=== PATIENT | male | born 1945 | race Caucasian/White ===

== ENCOUNTER 2020-08-05 00:31 | Outpatient (CLI) | payer MEDICARE, SELFPAY ==
[2020-08-05 19:01] LABS: SARS-CoV-2 RNA PCR Negative
== END 2020-08-05 00:32 | disposition home or self-care (01) ==
LOC: ANHCOVIDDT 00:31
PROVIDERS: PCP Family Medicine; Visit Provider Internal Medicine Gastroenterology
DX: Z01.812 Encounter for preprocedural laboratory examination (principal); Z20.828 Contact with and (suspected) exposure to other viral communicable diseases
CPT/HCPCS: 87635; C9803; U0003

== ENCOUNTER 2020-08-07 00:23 | Day surgery (SDC) | payer MEDICARE, SELFPAY ==
[2020-07-31 12:42] VITALS: BMI 32.2
[2020-08-07 09:43] VITALS: BP 139/76; PULSE 58; RESP 14; TEMP 36.8; O2SAT 98; BMI 33.0
--- NOTE | 2020-08-07 09:52 | WPDGICN ---
Assessment and Plan Assessment and plan (1) Tovar's esophagus: Code(s): K22.70 - Tovar's esophagus without dysplasia Status: Acute Assessment and Plan: Patient has a stable history of Tovar's esophagus. Denies any risk factors no bleeding weight loss or dysphagia. Plan is to continue proton pump inhibitors and anti-reflux measures. GI Consult Note Consult date/time: 08/07/20 09:52 HPI: Carlos Malave is a 75 year old male Seen in evaluation at the request of Dr. Enriqueta Sylvester. Patient presents for follow-up EGD. Patient known to have Tovar's esophagus. He denies any heartburn. He denied dysphagia. He has had no bleeding or weight loss. Family history is noncontributory. Patient takes pantoprazole 40 mg p.o. daily. Review of Systems Review of Systems: All systems reviewed & are unremarkable except as noted in HPI and below PMFSH Social History Social History Smoking packs per day: 1 Smoking cigarettes per day: 20.0 Years smoked: 15 Smoking pack-years: 15.00 Smoking status: Former smoker Tobacco type: cigarettes Alcohol intake: current Drinks per week: 1 Alcohol use details: BEER Substance use: never Substance use type: does not use Spiritual care concerns: No Meds Home Medications and Allergies Home Medications Medication Instructions Recorded Confirmed Type Vitamin C with Zinc 1,000 mg PO DAILY 07/31/20 08/07/20 History acetaminophen [Tylenol Arthritis] 650 mg PO Q12H 07/31/20 08/07/20 History amlodipine 10 mg PO DAILY 07/31/20 08/07/20 History atorvastatin 5 mg PO DAILY 07/31/20 08/07/20 History cyanocobalamin (vitamin B-12) 1,000 mcg PO DAILY 07/31/20 08/07/20 History [Vitamin B-12] gabapentin 100 mg PO DAILY 07/31/20 08/07/20 History hydrochlorothiazide 12.5 mg PO DAILY 07/31/20 08/07/20 History latanoprost 1 drp OPHTHALMIC (EYE) HS 07/31/20 08/07/20 History lisinopril 20 mg PO DAILY 07/31/20 08/07/20 History metoprolol succinate 50 mg PO HS 07/31/20 08/07/20 History metoprolol succinate 200 mg PO QAM 07/31/20 08/07/20 History pantoprazole 40 mg PO DAILY 07/31/20 08/07/20 History tamsulosin 0.4 mg PO HS 07/31/20 08/07/20 History Allergies Allergy/AdvReac Type Severity Reaction Status Date / Time No Known Allergies Allergy Verified 08/07/20 09:40 Vital Signs Vital Signs - 24 hr 08/07/20 09:43 Temperature 98.2 F Pulse Rate 58 L Respiratory Rate 14 Blood Pressure 139/76 Pulse Oximetry 98 Exam Narrative: Exam Narrative: Physical exam reveals patient to be alert. Vital signs stable. HEENT exam unremarkable. Lungs are clear to auscultation and percussion. Heart is without murmur or extra sounds. Abdominal exam bowel sounds are present soft nontender with no organomegaly. Digital external rectal exam normal.
[2020-08-07] MEDS: LACTATED RINGERS 1,000 ML 150 ML IV CONT (09:56)
--- NOTE | 2020-08-07 10:00 | WPDANESEPPF ---
Anes - Initial Pre Proc Eval Procedure: Operation Date: 08/07/20 10:30 Proposed Procedures p Esophagogastroduodenoscopy - He Hernández MD Date/Time: 08/07/20 10:00 Surgeon: He Hernández MD Pre Op Diagnosis: Tovar's Esophagus Patient Data Age: 75 Gender: M Height: 5 ft 10 in Weight: 104.5 kg Last Vital Signs Temp 36.8 C 08/07/20 09:43 Pulse 58 L 08/07/20 09:43 Resp 14 08/07/20 09:43 BP 139/76 08/07/20 09:43 Pulse Ox 98 08/07/20 09:43 Allergies Allergy/AdvReac Type Severity Reaction Status Date / Time No Known Allergies Allergy Verified 08/07/20 09:40 Home Medications Medication Instructions Recorded Confirmed Type Vitamin C with Zinc 1,000 mg PO DAILY 07/31/20 08/07/20 History acetaminophen [Tylenol Arthritis] 650 mg PO Q12H 07/31/20 08/07/20 History amlodipine 10 mg PO DAILY 07/31/20 08/07/20 History atorvastatin 5 mg PO DAILY 07/31/20 08/07/20 History cyanocobalamin (vitamin B-12) 1,000 mcg PO DAILY 07/31/20 08/07/20 History [Vitamin B-12] gabapentin 100 mg PO DAILY 07/31/20 08/07/20 History hydrochlorothiazide 12.5 mg PO DAILY 07/31/20 08/07/20 History latanoprost 1 drp OPHTHALMIC (EYE) HS 07/31/20 08/07/20 History lisinopril 20 mg PO DAILY 07/31/20 08/07/20 History metoprolol succinate 50 mg PO HS 07/31/20 08/07/20 History metoprolol succinate 200 mg PO QAM 07/31/20 08/07/20 History pantoprazole 40 mg PO DAILY 07/31/20 08/07/20 History tamsulosin 0.4 mg PO HS 07/31/20 08/07/20 History Patient hx anesthesia problems: none Family hx anesthesia problems: none PMFSH Past Medical History Medical History (Updated 08/07/20 @ 10:00 by Tyrese Norman MD) HTN (hypertension) Hyperlipidemia Obesity Social History Social History Smoking packs per day: 1 Smoking cigarettes per day: 20.0 Years smoked: 15 Smoking pack-years: 15.00 Smoking status: Former smoker Tobacco type: cigarettes Alcohol intake: current Drinks per week: 1 Alcohol use details: BEER Substance use: never Substance use type: does not use Spiritual care concerns: No Anes - Eval Final PreProcedure Day of Procedure 08/07/20 10:00 Patient weight: obese Heart: regular rate and rhythm Lungs: clear to auscultation Airway: Mallampati scale class II and special considerations poor dentition Neurological: alert and oriented Last oral intake: >/= 8 hours ASA classification: III Emergent: no Anesthetic plan: proceed Anesthesia type and monitoring: general GIVS and standard monitoring Informed Consent: The patient's anesthetic plan and its attendant risks and benefits were discussed with the patient/family/POA. Questions were solicited and answers provided to the satisfaction of the patient/family/POA.
[2020-08-07] MEDS: BENZOCAINE (*SP) 60 ML SPRAY CAN (HURRICAINE) 1 SPRAY MUCOUS MEM (10:32)
[2020-08-07 10:45] VITALS: BP 104/69; PULSE 54; RESP 15; O2SAT 93
[2020-08-07 10:55] VITALS: BP 101/69; PULSE 56; RESP 14; O2SAT 96
[2020-08-07 11:05] VITALS: BP 113/71; PULSE 52; RESP 16; O2SAT 93
[2020-08-07 11:15] VITALS: BP 117/69; PULSE 52; RESP 15; O2SAT 100
== END 2020-08-07 11:24 | disposition home or self-care (01) ==
PROVIDERS: PCP Family Medicine; Visit Provider Internal Medicine Gastroenterology
PROC: 0DJ08ZZ Inspection of Upper Intestinal Tract, Via Natural or Artificial Opening Endoscopic (ICD-10-PCS; CPT 43235; principal; 2020-08-07 10:30)
DX: K22.70 Barrett's esophagus without dysplasia (principal); I10 Essential (primary) hypertension; E78.5 Hyperlipidemia, unspecified; E66.9 Obesity, unspecified; Z68.33 Body mass index [BMI] 33.0-33.9, adult; Z87.891 Personal history of nicotine dependence
CPT/HCPCS: 43239; 88305; J2704; J7120